=== PATIENT | female | born 1960 | race Caucasian/White ===

== ENCOUNTER 2018-09-09 13:53 | Emergency (ER) | payer OTHER ==
[2018-09-09] MEDS ORDERED: DEXAMETHASONE 4 MG/ML VIAL PO ONE (14:00)
[2018-09-09] MEDS ORDERED: NS 1,000 ML IV ONE ×2 (14:32→16:40)
--- NOTE | 2018-09-09 14:42 | EDPHY ---
H & P Stated Complaint: had blood work done yesterday at home Glucose high ,sent by PCP Source: Patient Exam Limitations: No limitations - Personal History Current Tetanus/Diphtheria Vaccine: Unsure Current Tetanus Diphtheria and Acellular Pertussis (TDAP): Unsure Tetanus Vaccine Date: WITHIN 10 YRS - Medical/Surgical History Hx Asthma: No Hx Chronic Respiratory Disease: No Hx Diabetes: No Hx Cardiac Disease: Yes Hx Renal Disease: No Hx Cirrhosis: No Hx Alcoholism: No Hx HIV/AIDS: No Hx Splenectomy or Spleen Trauma: No Other PMH: hysterectomy, C-sections,Colon surgery/resection, hypertension, HYPOTHYROID, MIGRAINES, ANXIETY, DEPRESSION, NECK SURG x2 - Family History Significant Family History: No pertinent family hx - Social History Smoking Status: Never smoked Alcohol Use: None Drug Use: None <Tiana Celaya - Last Filed: 09/09/18 14:38> <Boston Bernard - Last Filed: 09/09/18 19:45> Time Seen by Provider: 09/09/18 13:58 HPI/ROS: 58-year-old female with history of total colectomy, as well as subsequent small bowel resection. She was recently admitted to [facility] for hyponatremia thought to be due to high output ostomy. This improved with TPN and she has been home since August 31 and is on TPN nightly. During that admission she was also treated and diagnosed with bacteremia MSSA likely from an existing PICC line, she is on Ancef for the next 4-6 weeks. She had labs drawn by [facility] yesterday showing an elevated glucose. She states that approximately 3 days ago she began to have cough congestion and is feeling a little run down. Review of systems As per HPI General no fever no chills positive fatigue HEENT no eye pain no eye discharge. No eye redness, no sore throat Respiratory positive cough, no shortness of breath Cardiac no chest pain, no peripheral edema GI no abdominal pain, no diarrhea, no constipation, no nausea, no vomiting no flank pain, no hematuria, no dysuria Musculoskeletal no myalgias, no joint pain Heme no easy bruising, no easy bleeding Endo no polyuria, positive increased thirst Skin no rashes, no pruritus Neuro no syncope, no dizziness, no headaches Psych is no suicidal ideation, no homicidal ideation (Tiana Celaya) - Physical Exam Exam: 58-year-old female, alert and oriented, appears fatigued Afebrile, no diaphoresis, no tachypnea Thinning hair Atraumatic normocephalic Extraocular muscles intact, anicteric Nares clear discharge Oropharynx no erythema no exudate Neck supple Lungs clear to auscultation bilaterally Heart rapid rate regular rhythm approximately 110 Abdomen no distention, bowel sounds present, ostomy present-functioning Extremities no cyanosis clubbing or edema PICC line in left upper arm Neuro alert nonfocal exam (Tiana Celaya) Constitutional: Initial Vital Signs Temperature (C) 37.3 C 09/09/18 14:02 Heart Rate 106 H 09/09/18 14:02 Respiratory Rate 18 09/09/18 14:02 Blood Pressure 127/80 H 09/09/18 14:02 O2 Sat (%) 89 L 09/09/18 14:02 O2 Delivery Mode Nasal Cannula O2 (L/minute) 1 Allergies/Adverse Reactions: No Known Allergies Allergy (Verified 09/09/18 14:11) Home Medications: Medication Instructions Recorded Estradiol [Estradiol 1 MG (RX)] 1 mg PO DAILY 12/22/14 Levothyroxine [Synthroid] 50 mcg PO DAILY06 12/22/14 Lisinopril [Zestril] 10 mg PO DAILY@09 12/22/14 Rifaximin [Xifaxan] 550 mg PO BID 12/22/14 SUMAtriptan [Imitrex] 25 mg PO Q2H PRN 12/22/14 Venlafaxine Xr [Effexor Xr] 300 mg PO DAILY 12/22/14 clonazePAM [KlonOPIN] 1 mg PO HS PRN 12/22/14 Medical Decision Making <Tiana Celaya - Last Filed: 09/09/18 14:38> - Diagnostics Imaging: Discussed imaging studies w/ will call clerk Radiologist <Boston Bernard - Last Filed: 09/09/18 19:45> - Diagnostics Imaging Results: Imaging Impressions Chest X-Ray 09/09/18 14:37 Impression: 1. Left lower lobe consolidation/pneumonia. Chest/Thorax CTA 09/09/18 16:41 Impression: 1. No evidence of pulmonary embolic disease. 2. A few scattered pleural-based nodular opacities, more prominent on the left side, could reflect the residua of septic emboli. Continued follow up is recommended. Results called and discussed with Boston Bernard M.D., on September 09, 2018 at 1748. ED Course/Re-evaluation: Patient seen and evaluation begun for 2 primary complaints first elevated blood glucose drawn yesterday by home health and second cough, nasal congestion that began 3 days ago. Laboratory orders placed CBC, CMP, lipase, venous abg, betahydroxybutyrate, mag, phos Ordered flu swab, CXR also one liter normal saline to start I will turn the care of this patient over to Dr Bernard at shift change 3pm. Current concerns electrolyte abnormality, dehydration hyperglycemia secondary to TPN r/o DKA, no hx of diabetes r/o ifnluenza, pneumonia (Tiana Celaya) I spoke with this patient approximately 315 p.m. With slight increase in her temperature to 37.9 from initial 37.3 with a feeling of chilling this. She is under blankets in she was placed on 1 L nasal cannula O2 for mild hypoxia of 89 % room air. She responded well to that with an O2 sat in the mid 90s. On my exam she has clear lungs despite her occasional dry cough. No rales or rhonchi appreciated. Mild tachycardia with no murmur gallop or rub cardiac exam belly is soft with with healthy-appearing ostomy. Her lower extremities have no edema or calf tenderness. Given clear lungs with hypoxia and a dry cough the clear appearing chest x-ray by my read I am concerned about possible pulmonary embolism or septic thrombi given indwelling PICC line. Given this concern will add on a D-dimer. Review of her CBC reveals anemia consistent with her anemia of chronic disease. Overall white count is normal. Serum lactate is slightly elevated Electrolytes reveal glucose greater than 500, however cannot initiate insulin drip at this time due to associated hypokalemia of 2.5. Will replace her potassium for starters continue hydration. Beta hydroxybutyrate urine are pending. In light of the patient's pneumonia, 2nd set of blood cultures drawn, 2nd L of saline started and patient is treated with Zithromax and Rocephin. Repeat electrolytes are sent post potassium p.o.. I spoke with Dr. Salinas, hospitalist/equipment services associate at [facility] accepts the patient for transfer to a step-down unit bed to [facility]. The plan to transfer to [place] due the patient's complexity. While she has been admitted to [facility] this month they arrange follow- up at [place] and recommended that subsequent admissions be to [place]. Patient is in agreement with this plan. D-dimer is quite elevated sh patient is sent for CT angio chest to evaluate for potential pulmonary emboli/septic emboli. CT angio was negative for pulmonary embolism. Patient's beta hydroxybutyrate is normal effectively ruling out DKA. While she has hyperglycemia-no DKA. I think that her hypokalemia is attributable to her short gut/high output ostomy. IV and p. O. Potassium is given with final potassium of 4.1 prior to transfer. Patient's last glucose was high 300s. Did not start an insulin drip due to her low potassium. The patient and her refused EMS transport signing AMA to go by private vehicle. The understand the risk of hypoxia, respiratory arrest, cardiac arrest except those risks. Discussion: Patient with pneumonia, hypoxia, hyperglycemia without DKA, significant hypokalemia attributable to high output ostomy. She warrants admission for further treatment of pneumonia and hypoxia, hypoglycemia. The patient requested [facility] as this was recommended her prior admission to [facility] and by her primary care physician. (Boston Bernard) Care Turn Over: to Dr Bernard at shift change. (Tiana Celaya) - Data Points Laboratory Results: 09/09/18 09/09/18 09/09/18 19:27 19:21 17:30 POC Blood Source VENOUS Patient Temperature 37.3 DEGREES DEGREES POC VBG pH 7.42 (7.31-7.42) POC VBG pCO2 44 mmHg mmHg (40-44) POC VBG pO2 45 mmHg H mmHg (35-40) POC VBG HCO3 28 mEq/L H mEq/L (22-26) POC VBG Total CO2 30 mEq/L H mEq/L (21-27) POC VBG Base Excess 4.0 mEq/L H mEq/L (-2.5-2.5) POC Mix VBG O2 Sat 80 % H % (65-75) POC Sodium 135 mEq/L mEq/L (135-145) POC Potassium 4.1 mEq/L mEq/L 2.4 mEq/L L* mEq/L (3.3-5.0) (3.3-5.0) POC Chloride 93.0 mEq/L L mEq/L (97-110) POC Total CO2 30 mEq/L mEq/L (22-31) POC BUN 24 mg/dL H mg/dL (7-23) POC Creatinine 0.6 mg/dL mg/dL (0.6-1.0) POC Glucose 356 mg/dL H mg/dL (70-100) POC Lactic Acid Naveed 2.8 mmol/L H D mmol/L (0.7-2.1) POC Calcium 8.1 mg/dL L mg/dL (8.5-10.4) Phosphorus Magnesium POC Total Bilirubin POC AST POC ALT POC Alk Phosphatase POC Total Protein POC Albumin Lipase Beta-Hydroxybutyrate 09/09/18 09/09/18 09/09/18 16:30 15:12 15:11 POC Blood Source VENOUS Patient Temperature 37.3 DEGREES DEGREES POC VBG pH 7.50 H (7.31-7.42) POC VBG pCO2 48 mmHg H mmHg (40-44) POC VBG pO2 29 mmHg L mmHg (35-40) POC VBG HCO3 38 mEq/L H mEq/L (22-26) POC VBG Total CO2 39 mEq/L H mEq/L (21-27) POC VBG Base Excess 15.0 mEq/L H mEq/L (-2.5-2.5) POC Mix VBG O2 Sat 60 % L % (65-75) POC Sodium 137 mEq/L mEq/L (135-145) POC Potassium 2.5 mEq/L L* mEq/L (3.3-5.0) POC Chloride 88.0 mEq/L L mEq/L (97-110) POC Total CO2 32 mEq/L H mEq/L (22-31) POC BUN 28 mg/dL H mg/dL (7-23) POC Creatinine 0.8 mg/dL mg/dL (0.6-1.0) POC Glucose 515 mg/dL H* mg/dL (70-100) POC Lactic Acid Naveed 3.6 mmol/L H D mmol/L 2.8 mmol/L H mmol/L (0.7-2.1) (0.7-2.1) POC Calcium 9.6 mg/dL mg/dL (8.5-10.4) Phosphorus Magnesium POC Total Bilirubin 0.6 mg/dL mg/dL (0.1-1.4) POC AST 27 IU/L IU/L (14-46) POC ALT < 5 IU/L L IU/L (9-52) POC Alk Phosphatase 109 IU/L IU/L (38-126) POC Total Protein 9.4 g/dL H g/dL (6.3-8.2) POC Albumin 2.7 g/dL L g/dL (3.5-5.0) Lipase Beta-Hydroxybutyrate 09/09/18 14:32 POC Blood Source Patient Temperature POC VBG pH POC VBG pCO2 POC VBG pO2 POC VBG HCO3 POC VBG Total CO2 POC VBG Base Excess POC Mix VBG O2 Sat POC Sodium POC Potassium POC Chloride POC Total CO2 POC BUN POC Creatinine POC Glucose POC Lactic Acid Naveed POC Calcium Phosphorus 4.5 mg/dL mg/dL (2.5-4.5) Magnesium 1.8 mg/dL mg/dL (1.6-2.3) POC Total Bilirubin POC AST POC ALT POC Alk Phosphatase POC Total Protein POC Albumin Lipase 301 IU/L H IU/L (23-300) Beta-Hydroxybutyrate 0.06 mmol/L mmol/L (0.02-0.27) Medications Given: Potassium Chloride (Potassium Cl 10 Meq (Premix)) 100 mls @ 100 mls/hr IV Q1H JADIEL Stop: 09/09/18 19:59 Last Admin: 09/09/18 17:52 Dose: 100 mls Discontinued Medications Acetaminophen (Tylenol) 1,000 mg PO EDNOW ONE Stop: 09/09/18 15:33 Last Admin: 09/09/18 15:48 Dose: 1,000 mg Azithromycin (Zithromax) 500 mg PO EDNOW ONE PRN Reason: Protocol Stop: 09/09/18 16:01 Last Admin: 09/09/18 16:56 Dose: 500 mg Dexamethasone (Decadron Injection) 6 mg PO EDNOW ONE Stop: 09/09/18 14:01 Last Admin: 09/09/18 14:12 Dose: Not Given Sodium Chloride (Ns) 1,000 mls @ 0 mls/hr IV ONCE ONE PRN Reason: Wide Open Stop: 09/09/18 14:33 Last Admin: 09/09/18 15:05 Dose: 1,000 mls Ceftriaxone Sodium/Dextrose (Rocephin 1 Gm (Premix)) 50 mls @ 100 mls/hr IV EDNOW ONE PRN Reason: Protocol Stop: 09/09/18 16:29 Last Admin: 09/09/18 16:25 Dose: 50 mls Sodium Chloride (Ns) 1,000 mls @ 0 mls/hr IV ONCE ONE; Wide Open PRN Reason: Protocol Stop: 09/09/18 16:41 Last Admin: 09/09/18 16:30 Dose: 1,000 mls Potassium Chloride (Potassium Chloride Oral Liquid) 40 meq PO EDNOW ONE Stop: 09/09/18 15:38 Last Admin: 09/09/18 15:50 Dose: 40 meq Potassium Chloride (Potassium Chloride Oral Liquid) 40 meq PO EDNOW ONE Stop: 09/09/18 17:46 Last Admin: 09/09/18 17:55 Dose: 40 meq Point of Care Test Results: CBC CBC Collection Date 09/09/18 CBC Collection Time 15:00 WBC 9.85 RBC 3.2 HGB 8.9 HCT 28.5 PLT 182 Neut # 7.91 Neut 80.3 LYMPH # 1.18 LYMPH 12.0 MCV 89.1 Chemistry 09/09/18 09/09/18 09/09/18 19:27 17:30 15:12 POC Sodium 135 mEq/L mEq/L 137 mEq/L mEq/L (135-145) (135-145) POC Potassium 4.1 mEq/L mEq/L 2.4 mEq/L L* mEq/L 2.5 mEq/L L* mEq/L (3.3-5.0) (3.3-5.0) (3.3-5.0) POC Chloride 93.0 mEq/L L mEq/L 88.0 mEq/L L mEq/L (97-110) (97-110) POC Total CO2 30 mEq/L mEq/L 32 mEq/L H mEq/L (22-31) (22-31) POC BUN 24 mg/dL H mg/dL 28 mg/dL H mg/dL (7-23) (7-23) POC Creatinine 0.6 mg/dL mg/dL 0.8 mg/dL mg/dL (0.6-1.0) (0.6-1.0) POC Glucose 356 mg/dL H mg/dL 515 mg/dL H* mg/dL (70-100) (70-100) POC Calcium 8.1 mg/dL L mg/dL 9.6 mg/dL mg/dL (8.5-10.4) (8.5-10.4) POC Total Bilirubin 0.6 mg/dL mg/dL (0.1-1.4) POC AST 27 IU/L IU/L (14-46) POC ALT < 5 IU/L L IU/L (9-52) POC Alk Phosphatase 109 IU/L IU/L (38-126) POC Total Protein 9.4 g/dL H g/dL (6.3-8.2) POC Albumin 2.7 g/dL L g/dL (3.5-5.0) Blood Gas/Lactic Acid-Arterial 09/09/18 09/09/18 15:11 19:21 POC Blood Source VENOUS VENOUS Blood Gas/Lactic Acid-Venous 09/09/18 09/09/18 09/09/18 19:21 16:30 15:11 POC VBG pH 7.42 7.50 H (7.31-7.42) (7.31-7.42) POC VBG pCO2 44 mmHg mmHg 48 mmHg H mmHg (40-44) (40-44) POC VBG pO2 45 mmHg H mmHg 29 mmHg L mmHg (35-40) (35-40) POC VBG HCO3 28 mEq/L H mEq/L 38 mEq/L H mEq/L (22-26) (22-26) POC VBG Total CO2 30 mEq/L H mEq/L 39 mEq/L H mEq/L (21-27) (21-27) POC VBG Base Excess 4.0 mEq/L H mEq/L 15.0 mEq/L H mEq/L (-2.5-2.5) (-2.5-2.5) POC Mix VBG O2 Sat 80 % H % 60 % L % (65-75) (65-75) POC Lactic Acid Naveed 2.8 mmol/L H D mmol/L 3.6 mmol/L H D mmol/L 2.8 mmol/L H mmol/L (0.7-2.1) (0.7-2.1) (0.7-2.1) D-Dimer D-Dimer Collection Date 09/09/18 D-Dimer Collection Time 15:00 D-Dimer (ng/ml) 1900 Influenza PCR Flu Nasal Swab Collection Date 09/09/18 Flu Nasal Swab Collection Time 14:44 Influenza A Result Not Detected Influenza B Result Not Detected Departure <Tiana Celaya B - Last Filed: 09/09/18 14:38> <Marco AntonioBoston Valdovinos - Last Filed: 09/09/18 19:45> - Departure Disposition: Acute Care Hospital Not [facility] Clinical Impression: Hypoxia, Hyperglycemia, Hypokalemia Pneumonia Qualifiers: Pneumonia type: due to unspecified organism Laterality: left Lung location: lower lobe of lung Qualified Code(s): J18.1 - Lobar pneumonia, unspecified organism Condition: Fair Instructions: Community Acquired Pneumonia (ED) Additional Instructions: Diagnosis: Pneumonia 2. Hypoxia 3. Hyperglycemia Plan: You declined EMS transport. to take her directly to [facility] for admission. He already have a bed there do not need to go to the emergency department. Referrals: Jocelyn Robles MD [Primary Care Provider] - As per Instructions
[2018-09-09] MEDS ORDERED: INSULIN REGULAR HUMAN 100 UNIT, COSIGN. REQUIRED 1 EA in NS 100 ML IV ONE (15:32)
[2018-09-09] MEDS ORDERED: ACETAMINOPHEN 500 MG TAB PO ONE (15:32)
[2018-09-09] MEDS ORDERED: POTASSIUM CL 20 MEQ/15 ML UDCUP PO ONE ×2 (15:37→17:45)
[2018-09-09] MEDS ORDERED: AZITHROMYCIN 250 MG TAB PO ONE (16:00)
[2018-09-09] MEDS ORDERED: IOPAMIDOL (ISOVUE 370) 100 ML BTL IV ONE (16:49)
[2018-09-09] MEDS ORDERED: POTASSIUM Cl (KCl) 100 ML IV SCH (18:00)
[2018-09-09 20:08] VITALS: BP 91/66
== END 2018-09-09 20:00 | disposition short-term general hospital (02) ==
LOC: CED 13:53
DX: J18.1 Lobar pneumonia, unspecified organism (principal); R09.02 Hypoxemia; R73.9 Hyperglycemia, unspecified; E87.6 Hypokalemia; E86.9 Volume depletion, unspecified
CPT/HCPCS: 71046; 71275; 96361; 96365; 96367; 96375; 99285; J0696; J1642; J3480; Q9967; 80048-ER; 80053-ER; 83605-ER; 84132-PO; 87186-90; J1815